=== PATIENT | female | born 1960 | race Hispanic/Latino ===

== ENCOUNTER 2020-02-12 09:39 | Emergency (ER) | payer MEDICARE, MEDICAID ==
[2020-02-12] MEDS ORDERED: levETIRAcetam 500 MG/100 ML PREMIX BAG ONE (10:02)
[2020-02-12 10:40] LABS: #Monocytes 0.5 thou/uL (0.11-0.59); #Neutrophils 11.7 thou/uL (1.40-6.50); %Basophils 0.2 % (0.0-1.0); %Eosinophils 0.3 % (0.0-10.0); %Lymphocytes 7.2 % (21.0-51.0); %Monocytes 3.9 % (0.0-10.0); %Neutrophils 88.3 % (42.0-75.0); Hemoglobin 13.2 g/dL (12.0-16.0); Mean Corpuscular HGB CONC 32.4 g/dL (32.0-36.0); Mean Corpuscular Hemoglobin 30.5 pg (27.0-31.0); Mean Corpuscular Volume 94.4 fL (78.0-98.0); Mean Platelet Volume 6.8 fL (7.4-10.4); Platelet Count 217 thou/uL (130-400); RBC Distribution Width 12.1 % (11.5-14.5); Red Blood Cell (RBC) Count 4.34 mill/uL (4.20-5.40); White Blood Cell (WBC) Count 13.3 thou/uL (4.8-10.8)
--- NOTE | 2020-02-12 11:03 | CT ---
EXAM: CT brain without contrast HISTORY: Seizure COMPARISON: 01/28/2020 TECHNIQUE: Multiple contiguous axial images were obtained and a CT of the brain without contrast. FINDINGS: The brain is normal in morphology and attenuation without focal lesions or confluent areas of infarction. There is no evidence of hydrocephalus, intracranial hemorrhage, or extra-axial fluid collection. The calvarium and overlying soft tissues are unremarkable. The visualized paranasal sinuses and masto id air cells are well aerated. IMPRESSION: No evidence of acute intracranial abnormality
[2020-02-12 11:04] LABS: ALT (SGPT) 13 U/L (8-55); AST (SGOT) 13 U/L (5-34); Albumin 4.1 g/dL (3.5-5.0); Alkaline Phosphatase 78 U/L (40-110); Anion Gap 17 mmol/L (10-20); BUN (Urea Nitrogen) 11 mg/dL (9.8-20.1); Bilirubin, Total 0.2 mg/dL (0.2-1.2); Calc. Creatinine Clearance 0 mL/min (70-130); Calcium 9.6 mg/dL (7.8-10.44); Carbon Dioxide 24 mmol/L (22-29); Chloride 104 mmol/L (98-107); Estimated GFR-MDRD 72; Globulin 3.2 g/dL (2.4-3.5); Glucose 133 mg/dL (70-105); Potassium 3.8 mmol/L (3.5-5.1); Protein, Total 7.3 g/dL (6.0-8.3); Sodium 141 mmol/L (136-145)
--- NOTE | 2020-02-12 11:14 | CT ---
CT CERVICAL SPINE WITH CORONAL AND SAGITTAL REFORMATIONS: Date: 02/12/2020 HISTORY: Seizure. Fall. Neck pain. FINDINGS: Comparison made with exam of 08/27/2019. Degenerative changes at C5-6 and T1-T2 levels are again seen. No fracture, subluxation, or bony destr uction is seen. No facet malalignment is identified. No prevertebral soft tissue swelling is seen. Th e visualized lung zurita are clear. IMPRESSION: No CT evidence of acute cervical spine fracture or traumatic subluxation. POS: OFF
[2020-02-12 11:21] LABS: Lactic Acid 3.7 mmol/L (0.5-2.2)
== END 2020-02-12 14:54 | disposition home or self-care (01) ==
LOC: ERS 09:39
DX: G40.909 Epilepsy, unspecified, not intractable, without status epilepticus (principal); E03.9 Hypothyroidism, unspecified; E11.9 Type 2 diabetes mellitus without complications; E78.5 Hyperlipidemia, unspecified; F31.9 Bipolar disorder, unspecified; F20.9 Schizophrenia, unspecified; Z79.899 Other long term (current) drug therapy; Z79.84 Long term (current) use of oral hypoglycemic drugs
CPT/HCPCS: 36415; 70450; 72125; 80053; 83605; 84146; 85025; 93005; 96361; 96374; J1953

== ENCOUNTER 2020-02-14 14:23 | Emergency (ER) | payer MEDICARE, OTHER ==
[2020-02-14 15:11] LABS: #Lymphocytes 1.2 thou/uL (1.20-3.40); #Monocytes 0.5 thou/uL (0.11-0.59); %Basophils 0.2 % (0.0-1.0); %Eosinophils 0.2 % (0.0-10.0); %Monocytes 4.2 % (0.0-10.0); %Neutrophils 85.5 % (42.0-75.0); Hemoglobin 12.6 g/dL (12.0-16.0); Mean Corpuscular HGB CONC 32.9 g/dL (32.0-36.0); Mean Corpuscular Hemoglobin 30.7 pg (27.0-31.0); Mean Corpuscular Volume 93.3 fL (78.0-98.0); Mean Platelet Volume 7.1 fL (7.4-10.4); Platelet Count 208 thou/uL (130-400); RBC Distribution Width 12.1 % (11.5-14.5); Red Blood Cell (RBC) Count 4.11 mill/uL (4.20-5.40); White Blood Cell (WBC) Count 11.7 thou/uL (4.8-10.8)
[2020-02-14 15:30] LABS: Anion Gap 17 mmol/L (10-20); BUN (Urea Nitrogen) 9 mg/dL (9.8-20.1); Calc. Creatinine Clearance 0 mL/min (70-130); Calcium 9.6 mg/dL (7.8-10.44); Carbon Dioxide 24 mmol/L (22-29); Chloride 105 mmol/L (98-107); Estimated GFR-MDRD 77; Glucose 86 mg/dL (70-105); Potassium 3.6 mmol/L (3.5-5.1); Sodium 142 mmol/L (136-145)
[2020-02-14 16:58] LABS: Bacteria/HPF 3+ HPF (None Seen); Bilirubin Negative (Negative); Blood, Urine Negative (Negative); Clarity Clear (Clear); Glucose, Urine (Dipstick) Normal (Negative); Ketone, Urine 40 mg/dL (Negative); Leukocyte 250 Leu/uL (Negative); Mucous/LPF Rare LPF (<2+); Nitrite Negative (Negative); Protein, Urine (Dipstick) 20 mg/dL (Neg-Trace); RBC/HPF 0-3 HPF (0-3); Specific Gravity, Urine 1.023 (1.002-1.036); Urobilinogen Normal mg/dL (Less than 2)
== END 2020-02-14 17:45 | disposition home or self-care (01) ==
LOC: ERS 14:23
DX: R53.1 Weakness (principal); E11.9 Type 2 diabetes mellitus without complications; E03.9 Hypothyroidism, unspecified; E78.5 Hyperlipidemia, unspecified; F31.9 Bipolar disorder, unspecified; F25.9 Schizoaffective disorder, unspecified; Z79.84 Long term (current) use of oral hypoglycemic drugs; Z79.899 Other long term (current) drug therapy
CPT/HCPCS: 36415; 80048; 81003; 81015; 85025; 87086

== ENCOUNTER 2020-02-16 09:27 | Inpatient (IN) | payer MEDICARE, MEDICAID, OTHER ==
[2020-02-16 09:52] LABS: #Lymphocytes 1.3 thou/uL (1.20-3.40); #Monocytes 1.1 thou/uL (0.11-0.59); #Neutrophils 13.8 thou/uL (1.40-6.50); %Basophils 0.1 % (0.0-1.0); %Eosinophils 0.1 % (0.0-10.0); %Lymphocytes 8.1 % (21.0-51.0); %Monocytes 6.6 % (0.0-10.0); Hemoglobin 14.2 g/dL (12.0-16.0); Mean Corpuscular Hemoglobin 29.6 pg (27.0-31.0); Mean Corpuscular Volume 92.7 fL (78.0-98.0); Mean Platelet Volume 7.1 fL (7.4-10.4); Platelet Count 234 thou/uL (130-400); RBC Distribution Width 12.5 % (11.5-14.5); Red Blood Cell (RBC) Count 4.79 mill/uL (4.20-5.40); White Blood Cell (WBC) Count 16.2 thou/uL (4.8-10.8)
[2020-02-16 09:59] LABS: INR-International Normal Ratio 1.1; PTT 27.1 sec (22.9-36.1); Prothrombin Time 13.9 sec (12.0-14.7)
[2020-02-16 10:12] LABS: ALT (SGPT) 64 U/L (8-55); AST (SGOT) 221 U/L (5-34); Albumin 4.3 g/dL (3.5-5.0); Alkaline Phosphatase 83 U/L (40-110); Anion Gap 19 mmol/L (10-20); BUN (Urea Nitrogen) 9 mg/dL (9.8-20.1); Bilirubin, Total 0.6 mg/dL (0.2-1.2); Calc. Creatinine Clearance 0 mL/min (70-130); Calcium 10.7 mg/dL (7.8-10.44); Carbon Dioxide 24 mmol/L (22-29); Chloride 102 mmol/L (98-107); Estimated GFR-MDRD 54; Globulin 3.5 g/dL (2.4-3.5); Glucose 169 mg/dL (70-105); Potassium 3.2 mmol/L (3.5-5.1); Protein, Total 7.8 g/dL (6.0-8.3); Sodium 142 mmol/L (136-145)
--- NOTE | 2020-02-16 10:14 | RAD ---
XR Chest 1 View Portable HISTORY: Fall, chest pain COMPARISON: 01/28/2020 FINDINGS: The heart size is normal. The lungs are well expanded without focal areas of consolidation, pneumothorax or pleural effusions. IMPRESSION: No radiographic evidence of acute cardiopulmonary process.
--- NOTE | 2020-02-16 10:17 | RAD ---
XR Pelvis AP STANDARD HISTORY: Fall, pelvic pain FINDINGS: No fracture or dislocation is identified.
[2020-02-16 10:39] LABS: CK (CPK) 11214 U/L (29-168)
[2020-02-16 10:41] LABS: CKMB 76.8 ng/mL (0-6.6)
[2020-02-16] MEDS ORDERED: cefTRIAXone\\ROCEPHIN 2 GM VIAL ONE (11:05)
[2020-02-16 11:27] LABS: Bilirubin Large (Negative); Blood, Urine Moderate (Negative); Glucose, Urine (Dipstick) Negative (Negative); Ketone, Urine > or equal to 80 mg/dL (Negative); Leukocyte Negative (Negative); Nitrite Negative (Negative); Protein, Urine (Dipstick) 100 mg/dL (Neg-Trace); Urobilinogen 0.2 mg/dL (Less than 2)
[2020-02-16 11:28] LABS: Clarity Hazy (Clear); Specific Gravity, Urine 1.026 (1.002-1.036)
[2020-02-16 11:36] LABS: Bacteria/HPF 1+ HPF (None Seen); Squamous Epithelial 21-50 HPF (0-3)
[2020-02-16] MEDS ORDERED: Ondansetron ODT 4 MG TAB PO PRN (11:46)
[2020-02-16] MEDS ORDERED: Bisacodyl 5 MG TAB PO PRN (11:46)
[2020-02-16] MEDS ORDERED: Acetaminophen 325 MG TAB PO PRN (11:46)
[2020-02-16] MEDS ORDERED: Lactated Ringer's 1,000 ML IV SCH ×2 (12:00→18:30)
[2020-02-16 12:55] VITALS: BMI 30.2
[2020-02-16 13:23] LABS: Lactic Acid 1.8 mmol/L (0.5-2.2)
[2020-02-16 13:28] LABS: HBCM Index 0.07 S/CO (0-0.79); HBSAg Index 0.22 S/CO (0-0.99); HIV (1/2) Antibody/Antigen Non-Reactive (NonReactive); Hep A IgM AB Non-Reactive (NonReactive); Hep A IgM S/CO 0.53 S/CO (0-0.79); Hep B Surf Ag Non-Reactive S/CO (NonReactive); Hep C IgG Ab Non-Reactive (NonReactive); Hep C Index 0.08 S/CO (0-0.79); Hepatitis B Core IgM Abs Non-Reactive (NonReactive)
[2020-02-16 13:33] LABS: Troponin I 0.047 ng/mL (< 0.028)
--- NOTE | 2020-02-16 13:56 | PDOC.FPRHP ---
- History of Present Illness Chief Complaint: weakness History of Present Illness: Pt is a 59yo F with a PMH of HLD, HTN, seizures, hypothyroidism, DM2, bipolar, depression, schizoaffective who presents after being found down for 2 days in her house. Patient came to the ED on 02/11 for a seizure and was in the ED on with complaints of weakness and was sent home with Abx for a UTI. Patient states she has been increasingly weak and is unsure why. She states she fell off her bed on Sunday once she got home from the ED and was unable to get up until her friend found her and brought her to the ED. She denies LOC, but did hit her head when she fell. She states full body aches and weakness, and SOB when she walks, but no other symptoms. Denies any substance use, any new seizures, CP, NGUYỄN, abdominal pain, change in bowel habits or dysuria. She has home health who comes to see her everyday M-F. ED Course: 2g Rocephin, 1L bolus LR - Allergies/Adverse Reactions Allergies Allergy/AdvReac Type Severity Reaction Status Date / Time fluoxetine [From Prozac] Allergy Verified 02/16/20 12:35 haloperidol [From Haldol] Allergy Verified 02/16/20 12:35 zolpidem [From Ambien] Allergy Verified 02/16/20 12:35 - Home Medications Medication Instructions Recorded Confirmed Type Cephalexin [Keflex] 1 cap PO TID 02/16/20 02/16/20 History Citalopram [CeleXA] 10 mg PO QPM 02/16/20 02/16/20 History Divalproex Sodium [Divalproex 500 mg PO QPM 02/16/20 02/16/20 History Sodium ER] Levothyroxine Sodium [Synthroid] 75 mcg PO DAILY 02/16/20 02/16/20 History OLANZapine 1 tab PO DAILY 02/16/20 02/16/20 History Pravastatin Sodium [Pravachol] 40 mg PO HS 02/16/20 02/16/20 History Valbenazine Tosylate [Ingrezza] 1 cap PO DAILY 02/16/20 02/16/20 History levETIRAcetam [Keppra] 1,000 mg PO BID 02/16/20 02/16/20 History metFORMIN [Glucophage] 500 mg PO BID-WM 02/16/20 02/16/20 History traZODone HCl [Trazodone HCl] 150 mg PO QPM 02/16/20 02/16/20 History - History PMHx: HLD, HTN, seizures, hypothyroidism, DM2, bipolar, schizoaffective, depression PSHx: cataract surgery FHx: mom-gallbladder ca, dad heart attack Social: denies tobacco, drugs, or alcohol use. Lives at home - Review of Systems General: reports: fatigue. denies: fever/chills, weight/appetite/sleep changes Eyes: denies: vision changes ENT: denies: nasal congestion Respiratory: reports: exercise intolerance. denies: cough Cardiovascular: denies: chest pain, palpitation, edema Gastrointestinal: denies: nausea, vomiting, constipation, abdominal pain Genitourinary: denies: dysuria Skin: denies: rashes, jaundice Musculoskeletal: denies: pain, tenderness Neurological: reports: weakness Psychological: denies: anxiety, depression - Vital signs BP: [] HR: [] RR: [] Tmax: [] Pox: []% on [] Wt: [] - Physical Exam Constitutional: NAD, awake, alert and oriented HEENT: normocephalic and atraumatic, EOMI, no scleral icterus Heart: RRR, pulses present, no edema Lungs: CTAB, no respiratory distress Abdomen: soft, non-tender, bowel sounds present Musculoskeletal: ROM grossly normal Neurological: no focal deficit, normal sensation -Neurological: 3/5 strength BUE, 2/5 strength BLE Skin: no rash/lesions, no jaundice -Heme/Lymphatic: multiple bruises on extremities from fall Psychiatric: normal mood and affect, intact recent and remote memory FMR H&P: Results - Labs Result Diagrams: 02/16/20 09:40 02/16/20 09:40 Lab results: WBC 16.2 thou/uL (4.8-10.8) H 02/16/20 09:40 Hgb 14.2 g/dL (12.0-16.0) 02/16/20 09:40 Hct 44.4 % (36.0-47.0) 02/16/20 09:40 MCV 92.7 fL (78.0-98.0) 02/16/20 09:40 Plt Count 234 thou/uL (130-400) 02/16/20 09:40 Neutrophils % 85.0 % (42.0-75.0) H 02/16/20 09:40 Sodium 142 mmol/L (136-145) 02/16/20 09:40 Potassium 3.2 mmol/L (3.5-5.1) L 02/16/20 09:40 Chloride 102 mmol/L (98-107) 02/16/20 09:40 Carbon Dioxide 24 mmol/L (22-29) 02/16/20 09:40 BUN 9 mg/dL (9.8-20.1) L 02/16/20 09:40 Creatinine 1.05 mg/dL (0.6-1.1) 02/16/20 09:40 Glucose 169 mg/dL (70-105) H 02/16/20 09:40 Lactic Acid 1.8 mmol/L (0.5-2.2) 02/16/20 12:58 Calcium 10.7 mg/dL (7.8-10.44) H 02/16/20 09:40 Total Bilirubin 0.6 mg/dL (0.2-1.2) 02/16/20 09:40 AST 221 U/L (5-34) H 02/16/20 09:40 ALT 64 U/L (8-55) H 02/16/20 09:40 Alkaline Phosphatase 83 U/L (40-110) 02/16/20 09:40 Creatine Kinase 37593 U/L (29-168) H 02/16/20 09:40 CK-MB (CK-2) 76.8 ng/mL (0-6.6) H* 02/16/20 09:40 B-Natriuretic Peptide 155.5 pg/mL (0-100) H 02/16/20 09:40 Serum Total Protein 7.8 g/dL (6.0-8.3) 02/16/20 09:40 Albumin 4.3 g/dL (3.5-5.0) 02/16/20 09:40 Urine Ketones > or equal to 80 mg/dL (Negative) A 02/16/20 10:29 Urine Blood Moderate (Negative) A 02/16/20 10:29 Urine Nitrite Negative (Negative) 02/16/20 10:29 Ur Leukocyte Esterase Negative (Negative) 02/16/20 10:29 Urine RBC 4-6 HPF (0-3) A 02/16/20 10:29 Urine WBC 11-20 HPF (0-3) A 02/16/20 10:29 Ur Squamous Epith Cells 21-50 HPF (0-3) A 02/16/20 10:29 Urine Bacteria 1+ HPF (None Seen) A 02/16/20 10:29 - EKG Interpretation EKG: normal sinus rhythm FMR H&P: A/P - Plan Rhabdomyolysis -patient was found down after at least 2 days -CK >11,000, WBC 16,000 -1L LR in the ED, additional 1L on admission -150mL/hr LR mIVF -continue to monitor CK, I/Os Generalized weakness likely 2/2 deconditioning -patient has history of weakness -PT/OT on board Transaminitis -likely 2/2 rhabdo -continue to monitor with daily CMPs Elevated Troponin -likely 2/2 rhabdo -will trend HLD -continue home meds HTN -continue home meds -continue to monitor Seizures -continue home meds Hypothyroidism -continue home meds DM2 -continue home meds Bipolar -continue home meds Depression -continue home meds IVF: 150mL/hr LR DVT prophylaxis: Lovenox Diet: Heart healthy PCP: [facility] Dispo: Admit to inpatient Tele. Palliative and CM consulted for discharge planning. Plan discussed with Dr. Mcallister and attending Dr. Vences and they agree. FMR H&P: Upper Level - Plan Date/Time: 02/16/20 1356 I, Vi Mcallister MD, have evaluated this patient and agree with findings/plan as outlined by editing internship resident. Pertinent changes/additions are listed here. HPI: This is a 59yo F with PMH significant for HTN, epilepsy, HLD, DMII, and mental health disorders who presents to the ER after being found down for the last 2 days. The patient states that she fell on Sunday and was unable to get up. She endorses muscle aches and weakness. She endorses SOB that is worse with walking. She denies any chest pain. She does have services M-F but no help on the weekends. She was unable to take any of her medications over the last 2 days. She is unsure if she had a seizure 2 days ago or not. She has a tremor at baseline. Denies any post ictal period, loss of bowel, or biting tongue. Denies fever, chills. In the ER, the patient was given rocephin as her UA showed some bacteria as well as 1L NS. See editing internship note for full HPI/details. PE: patient lying down in bed, no acute distress. obese. Bruising to left eye. RRR, no murmurs. CTAB. No TTP of abdomen. Overall weak- poor effort on exam. Plan: We will admit patient to tele, obs. Her CK was 11,000 - Rhabdomyolysis. Will treat with aggressive fluids. Encourage PO hydration as well. Will trend CK - expect to decrease 40-50%/day. Will order PT/OT due to deconditioning. Will not continue to treat UTI as patient does not have any urinary symptoms. Will continue home meds for her chronic conditions. CM - consulted for discharge planning - SNF vs increased care. Palliative care consulted for goals of care. Patient with multiple co-morbidities. Case discussed with Dr. Dang
[2020-02-16] MEDS: Lactated Ringer's 1,000 ML IV SCH ×2 (14:52→21:08)
[2020-02-16 15:12] LABS: ALT (SGPT) 57 U/L (8-55); AST (SGOT) 192 U/L (5-34); Albumin 3.7 g/dL (3.5-5.0); Alkaline Phosphatase 69 U/L (40-110); Bilirubin, Direct 0.2 mg/dL (0.1-0.3); Bilirubin, Total 0.3 mg/dL (0.2-1.2); Protein, Total 6.5 g/dL (6.0-8.3)
[2020-02-16 16:19] LABS: Troponin I 0.031 ng/mL (< 0.028)
[2020-02-16] MEDS ORDERED: HumaLOG 300 UNITS/3 ML VIAL SC PRN (17:28)
[2020-02-16] MEDS ORDERED: Dextrose 5% in Water 1,000 ML IV PRN (17:28)
[2020-02-16] MEDS ORDERED: Dextrose 50% Abboject 50 ML SYRINGE SLOW IVP PRN (17:28)
[2020-02-16] MEDS ORDERED: metFORMIN 500 MG TAB PO SCH (19:30)
[2020-02-16] MEDS ORDERED: traZODone HCl 150 MG TAB PO SCH (21:00)
[2020-02-16] MEDS ORDERED: Atorvastatin Calcium 10 MG TAB PO SCH (21:00)
[2020-02-16] MEDS: levETIRAcetam 500 MG TAB PO SCH (21:09)
[2020-02-16] MEDS: Citalopram 10 MG TAB PO SCH (21:10)
[2020-02-17] MEDS: Lactated Ringer's 1,000 ML IV SCH ×4 (00:19→23:20)
[2020-02-17 04:51] LABS: #Lymphocytes 3.2 thou/uL (1.20-3.40); #Monocytes 1.1 thou/uL (0.11-0.59); #Neutrophils 6.4 thou/uL (1.40-6.50); %Basophils 0.3 % (0.0-1.0); %Eosinophils 0.3 % (0.0-10.0); %Monocytes 9.8 % (0.0-10.0); %Neutrophils 59.7 % (42.0-75.0); Mean Corpuscular HGB CONC 32.7 g/dL (32.0-36.0); Mean Corpuscular Hemoglobin 31.1 pg (27.0-31.0); Mean Corpuscular Volume 95.1 fL (78.0-98.0); Mean Platelet Volume 7.5 fL (7.4-10.4); Platelet Count 164 thou/uL (130-400); RBC Distribution Width 12.5 % (11.5-14.5); Red Blood Cell (RBC) Count 3.54 mill/uL (4.20-5.40); White Blood Cell (WBC) Count 10.8 thou/uL (4.8-10.8)
[2020-02-17 05:15] LABS: ALT (SGPT) 50 U/L (8-55); AST (SGOT) 136 U/L (5-34); Alkaline Phosphatase 57 U/L (40-110); Anion Gap 12 mmol/L (10-20); BUN (Urea Nitrogen) 7 mg/dL (9.8-20.1); Bilirubin, Total 0.3 mg/dL (0.2-1.2); CK (CPK) Greater than 4000 U/L (29-168); Calc. Creatinine Clearance 115 mL/min (70-130); Carbon Dioxide 26 mmol/L (22-29); Chloride 107 mmol/L (98-107); Estimated GFR-MDRD Greater than 90; Globulin 2.3 g/dL (2.4-3.5); Glucose 106 mg/dL (70-105); Potassium 3.4 mmol/L (3.5-5.1); Protein, Total 5.3 g/dL (6.0-8.3); Sodium 142 mmol/L (136-145)
[2020-02-17] MEDS: Levothyroxine Sodium 75 MCG TAB PO SCH (05:41)
[2020-02-17] MEDS ORDERED: Potassium Chloride 20 MEQ TAB PO SCH (06:15)
--- NOTE | 2020-02-17 06:18 | PDOC.FM ---
- Subjective Subjective: Patient states she is very sore and her muscles hurt all over. It hurts to move. Patient is interested in going to a SNF to get her strength back before going back home. - Objective MAR Reviewed: Yes Vital Signs & Weight: Vital Signs (12 hours) Temp Pulse Resp BP Pulse Ox 02/17/20 04:00 98.5 F 55 L 14 125/59 L 96 02/16/20 23:41 63 120/59 L 02/16/20 20:00 99 02/16/20 19:00 98.6 F 60 16 96/55 L 96 Weight Weight 77.564 kg I&O: 02/15/20 02/16/20 02/17/20 06:59 06:59 06:59 Intake Total 2136 Output Total 650 Balance 1486 Result Diagrams: 02/17/20 04:20 02/17/20 04:20 Phys Exam - Physical Examination Constitutional: NAD HEENT: moist MMs, sclera anicteric Neck: full ROM Respiratory: no wheezing, clear to auscultation bilateral Cardiovascular: RRR, no significant murmur Gastrointestinal: soft, non-tender Musculoskeletal: no edema, pulses present 2/5 strength in BUE and BLE. Neurological: moves all 4 limbs Psychiatric: normal affect, A&O x 3 Skin: normal turgor Dx/Plan - Plan Plan: Rhabdomyolysis -patient was found down after at least 2 days -CK >11,000, WBC 16,000 -1L LR in the ED, additional 1L on admission -150mL/hr LR mIVF -continue to monitor CK, I/Os - CK improving Generalized weakness likely 2/2 deconditioning -patient has history of weakness -PT/OT on board, CM for possible SNF placement Transaminitis -likely 2/2 rhabdo -continue to monitor with daily CMPs - improving Elevated Troponin -likely 2/2 rhabdo -.063 > .031 Hypokalemia - potassium 3.4 - replaced -continue to monitor HLD -continue home meds HTN -continue home meds -continue to monitor Seizures -continue home meds Hypothyroidism -continue home meds DM2 -continue home meds Bipolar -continue home meds Depression -continue home meds Acute cystitis, resolved - patient was treated in ED on 02/13 for UTI - patient denies symptoms - urine culture prelim neg IVF: 150mL/hr LR DVT prophylaxis: Lovenox Diet: Heart healthy PCP: [facility] Dispo: Admit to inpatient Tele. Palliative and CM consulted for discharge planning. Plan discussed with Dr. Mcallister and attending Dr. Beauchamp and they agree.
[2020-02-17] MEDS: levETIRAcetam 500 MG TAB PO SCH ×2 (08:16→20:38)
[2020-02-17] MEDS: OLANZapine 5 MG TAB PO SCH (08:16)
[2020-02-17] MEDS: metFORMIN 500 MG TAB PO SCH ×2 (08:16→17:38)
[2020-02-17] MEDS: Enoxaparin Sodium 40 MG/0.4 ML SYRINGE SC SCH (08:17)
--- NOTE | 2020-02-17 09:41 | HP ---
HISTORY OF PRESENT ILLNESS: I have examined the patient and discussed the case with Dr. Alena Sanchez. Briefly, Ms. Galarza is a 59-year-old female with a history of hyperlipidemia, hypertension, seizures, hypothyroidism, and type 2 diabetes. She was "found down" in her home for 2 days and presented to the ER. She has been complaining of weakness and was also noted to have an elevated CPK, consistent with rhabdomyolysis. She has been admitted for fluids and further workup and evaluation. She speaks quietly and softly, but is alert and awake. PHYSICAL EXAMINATION: VITAL SIGNS: Stable without a significant abnormality. EARS, NOSE, AND THROAT: No erythema or exudate. CARDIAC: Heart rhythm regular. S4 gallop. No murmur or rub noted. LUNGS: Clear without rales or wheezes. ABDOMEN: Flat and soft without guarding or rebound. MSK: No focal weaknesses. NEUROLOGIC: No focal deficits. LABORATORY DATA: Sodium 142, potassium 3.2, chloride 102, bicarb 24, BUN 9, and creatinine 1.05. Glucose is 169. She does have elevated transaminases with an AST of 221 and ALT of 64. Her initial creatine kinase was 11,214. Her troponin is slightly elevated at 0.063, dropping to 0.047. CBC: Her white count initially was 16,200, hemoglobin 14.2, hematocrit 44 with an MCV of 92. Her liver serologies all negative for hepatitis A, B, and C. ASSESSMENT: Rhabdomyolysis. COMMENT: Given that the patient is on atorvastatin, we should likely hold this medication to see if this improves, although the rhabdo is likely secondary to her numerous falls and prolonged "downstate." We also recheck a TSH as this can cause elevations of the CPK when low. We need further workup of her liver function tests as well, having no adequate explanation why she has elevated transaminases. We will also get her started with some OT/PT as much of her weakness may be secondary to poor conditioning. Job ID: [id number]
[2020-02-17 12:15] LABS: SARS-CoV-2 MS2 Positive; SARS-CoV-2 N Gene Negative; SARS-CoV-2 S Gene Negative; SARS-CoV-2 by NAA Not Detected (NotDetected); SARS-CoV-2 orf1ab Negative
--- NOTE | 2020-02-17 13:15 | PRG ---
DATE OF SERVICE: 02/17/2020 Ms. Galarza is very lethargic this morning, though arousable. She does state that she snores and has daytime somnolence. If she has not been worked up in the past, she may need a workup for sleep apnea. We will also proceed with a further workup of her elevated transaminases to include a right upper quadrant ultrasound and hepatitis studies. Also given her weakness and "aching all over," we will hold her statins in the event that this could be the cause as well as check her TSH for hypothyroidism. Job ID: [id number]
[2020-02-17] MEDS: Citalopram 10 MG TAB PO SCH (20:38)
[2020-02-17] MEDS: traZODone HCl 50 MG TAB PO SCH (20:38)
[2020-02-18 04:07] LABS: #Eosinphils 0.1 thou/uL (0.0-0.7); #Lymphocytes 2.7 thou/uL (1.20-3.40); #Monocytes 0.6 thou/uL (0.11-0.59); %Basophils 0.5 % (0.0-1.0); %Eosinophils 1.2 % (0.0-10.0); %Lymphocytes 36.9 % (21.0-51.0); %Monocytes 7.9 % (0.0-10.0); %Neutrophils 53.5 % (42.0-75.0); Hemoglobin 10.9 g/dL (12.0-16.0); Mean Corpuscular HGB CONC 30.4 g/dL (32.0-36.0); Mean Corpuscular Hemoglobin 30.2 pg (27.0-31.0); Mean Corpuscular Volume 99.2 fL (78.0-98.0); Mean Platelet Volume 7.7 fL (7.4-10.4); Platelet Count 148 thou/uL (130-400); RBC Distribution Width 12.5 % (11.5-14.5); White Blood Cell (WBC) Count 7.4 thou/uL (4.8-10.8)
[2020-02-18 04:32] LABS: ALT (SGPT) 45 U/L (8-55); AST (SGOT) 103 U/L (5-34); Albumin 2.5 g/dL (3.5-5.0); Alkaline Phosphatase 58 U/L (40-110); Anion Gap 12 mmol/L (10-20); BUN (Urea Nitrogen) 5 mg/dL (9.8-20.1); Bilirubin, Total 0.2 mg/dL (0.2-1.2); CK (CPK) 2468 U/L (29-168); Calc. Creatinine Clearance 131 mL/min (70-130); Calcium 8.3 mg/dL (7.8-10.44); Carbon Dioxide 22 mmol/L (22-29); Chloride 108 mmol/L (98-107); Estimated GFR-MDRD Greater than 90; Globulin 2.7 g/dL (2.4-3.5); Glucose 86 mg/dL (70-105); Potassium 4.2 mmol/L (3.5-5.1); Protein, Total 5.2 g/dL (6.0-8.3); Sodium 138 mmol/L (136-145)
[2020-02-18] MEDS: Levothyroxine Sodium 75 MCG TAB PO SCH (05:32)
[2020-02-18] MEDS: Lactated Ringer's 1,000 ML IV SCH (05:32)
--- NOTE | 2020-02-18 06:26 | PDOC.FM ---
- Subjective Subjective: Patient resting comfortably in bed. No new complaints or concerns, just still weak. Says her muscles feel a little better today. - Objective MAR Reviewed: Yes Vital Signs & Weight: Vital Signs (12 hours) Temp Pulse Resp BP Pulse Ox 02/18/20 04:00 98.9 F 61 16 136/69 98 02/17/20 19:05 99.2 F 69 18 135/70 94 L Weight Admit Weight 77.564 kg Weight 77.564 kg I&O: 02/16/20 02/17/20 02/18/20 06:59 06:59 06:59 Intake Total 2136 4860 Output Total 650 2850 Balance 1486 2009 Result Diagrams: 02/18/20 03:36 02/18/20 03:36 Phys Exam - Physical Examination Constitutional: NAD HEENT: sclera anicteric Neck: full ROM Respiratory: no wheezing Cardiovascular: RRR, no significant murmur Gastrointestinal: soft, non-tender Musculoskeletal: no edema, pulses present 2/5 strength in BUE and BLE. improvement from yesterday Neurological: moves all 4 limbs Psychiatric: normal affect, A&O x 3 Skin: no rash, normal turgor Dx/Plan - Plan Plan: Plan: Rhabdomyolysis -patient was found down after at least 2 days -CK >11,000, WBC 16,000 -1L LR in the ED, additional 1L on admission -continue to monitor CK, I/Os - CK improving to 2468 today, d/c fluids and encourage PO intake Generalized weakness likely 2/2 deconditioning -patient has history of weakness -PT/OT on board, CM for possible SNF placement Cholelithiasis with possible early cholecystitis -RUQ U/S: "cholelithiasis with subtle gallbladder wall thickening and positive sonographic Barrientos's sign concerning for early cholecystitis given the realitive lack of gallbladder distension" -denied abdominal pain. -follow up with HIDA scan Transaminitis -likely 2/2 rhabdo -continue to monitor with daily CMPs - improving -Hepatitis panel, HIV neg Elevated Troponin -likely 2/2 rhabdo -.063 > .031 Hypokalemia, resolved -continue to monitor HLD -continue home meds HTN -continue home meds -continue to monitor Seizures -continue home meds Hypothyroidism -continue home meds DM2 -continue home meds Bipolar -continue home meds Depression -continue home meds Acute cystitis, resolved - patient was treated in ED on 02/13 for UTI - patient denies symptoms - urine culture prelim neg IVF: 150mL/hr LR DVT prophylaxis: Lovenox Diet: Heart healthy PCP: [facility] Dispo: Admit to inpatient Tele. Palliative and CM consulted for discharge planning. Plan discussed with Dr. Mcallister and attending Dr. Beauchamp and they agree.
--- NOTE | 2020-02-18 07:36 | ULT ---
US Gallbladder RUQ History: Elevated AST/a.l. T Comparison: None. Findings: Real-time grayscale and color evaluation right upper quadrant of the abdomen was performed. There is portion of the aorta IVC and pancreas are unremarkable. Mild increased hepatic echotexture. Portal venous patent with antegrade flow and normal phasicity. Liver measures 17.6 cm in length. Common bile duct is normal measuring less than 4 mm. Extensive cholelithiasis. Gallbladder wall thickness upper limits of normal. Sonographic Barrientos sign is positive. Right kidney measures 10 x 4.2 x 3.9 cm without mass, hydronephrosis or normal calcifications. Impression: 1. Cholelithiasis with subtle gallbladder wall thickening and positive sonographic Barrientos's sign conc erning for early cholecystitis given the relative lack of gallbladder distention. 2. Mild hepatic steatosis.
[2020-02-18] MEDS: metFORMIN 500 MG TAB PO SCH ×2 (08:16→18:22)
[2020-02-18] MEDS: levETIRAcetam 500 MG TAB PO SCH ×2 (08:16→21:06)
[2020-02-18] MEDS: OLANZapine 5 MG TAB PO SCH (08:16)
[2020-02-18] MEDS: Enoxaparin Sodium 40 MG/0.4 ML SYRINGE SC SCH (08:17)
--- NOTE | 2020-02-18 12:32 | PDOC.FMACP ---
Advance Care Planning - Problem (1) Declining functional status Status: Acute Code(s): R53.81 - OTHER MALAISE (2) Palliative care encounter Status: Acute Code(s): Z51.5 - ENCOUNTER FOR PALLIATIVE CARE (3) Diabetes Status: Acute Code(s): E11.9 - TYPE 2 DIABETES MELLITUS WITHOUT COMPLICATIONS (4) Seizure Status: Acute Code(s): R56.9 - UNSPECIFIED CONVULSIONS (5) Cholelithiasis Status: Acute Code(s): K80.20 - CALCULUS OF GALLBLADDER W/O CHOLECYSTITIS W/O OBSTRUCTION - Note Participants: patient, family, palliative care Summary: Advanced Care Planning was discussed, allowed opportunity to decline. The diagnosis, prognosis and goals of care were discussed. Appropriate forms and documentation to accomplish the goals of care were discussed. All questions were answered. Patient elects to remain with full resuscitation measures. She has also stated that she would like her brother Delgado to be her MPOA, Palliative Care to assist in completion. No Directive to physician completed. The Palliative Care Team will be continue to assist with completion of any outstanding forms as identified. Please also refer to Palliative Care notes in note section. Time Spent (mins): 20
--- NOTE | 2020-02-18 12:36 | PDOC.PALPN ---
Palliative Progress Note - Subjective Slightly lethargic, delayed in response. Poor memory recall, however able to reorient. Frustrated with weakness and difficulty in feeding herself. - Objective Vital Signs: Vital Signs - Most Recent Temp Pulse Resp BP Pulse Ox 98.2 F 59 L 16 168/80 H 98 02/18/20 11:07 02/18/20 11:07 02/18/20 11:07 02/18/20 11:07 02/18/20 11:07 - Physical Exam Constitutional: ill appearing HEENT: moist MMs, sclera anicteric Respiratory: no wheezing, unlabored breathing Cardiovascular: RRR Gastrointestinal: soft, non-tender Genitourinary: ty catheter Musculoskeletal: edema present, diffuse muscle atrophy Deviation from normal: weakenss in gripping hands, equal strength Neurology: moves all 4 limbs, no focal deficits Skin: cap refill <2 seconds Psychiatric: A&O x 3, flat affect - Assessment (1) Declining functional status Code(s): R53.81 - OTHER MALAISE Current Visit: Yes Status: Acute (2) Palliative care encounter Code(s): Z51.5 - ENCOUNTER FOR PALLIATIVE CARE Current Visit: Yes Status: Acute (3) Diabetes Code(s): E11.9 - TYPE 2 DIABETES MELLITUS WITHOUT COMPLICATIONS Current Visit : Yes Status: Acute (4) Seizure Code(s): R56.9 - UNSPECIFIED CONVULSIONS Current Visit: Yes Status: Acute (5) Cholelithiasis Code(s): K80.20 - CALCULUS OF GALLBLADDER W/O CHOLECYSTITIS W/O OBSTRUCTION Current Visit: Yes Status: Acute - Plan Plan: GOC: Wishes she could return to home setting, but understanding that she needs care at a facility. States her main goal is "To get better and stronger". Emotional Support and Therapeutic listening. Patient verbal but slow to convey thoughts and requires ques. Patient to transition to [facility] skilled setting. Continue with full treatments and aggressive measures. Palliative Care will attempt to complete MPOA with patient prior to discharge. [25] minutes spent on this encounter with >50% of the time in counseling and coordination of care. - ROS Constitutional: weakness ENT: other (denies difficulity swallowing, throat irritation) Cardiology: other (denies chest palpitations, chest pain) Gastrointestinal: constipation Musculoskeletal: limited mobility Neurological: weakness
--- NOTE | 2020-02-18 15:03 | PRG ---
DATE OF SERVICE: 02/18/2020 Ms. Galarza is still slightly lethargic, but she will answer questions appropriately. We had obtained a gallbladder ultrasound, given her history of elevated liver enzymes. She does have extensive cholelithiasis. Her gallbladder wall thickness is at the upper limits of normal. She had a positive sonographic Barrientos sign concerning for early cholecystitis as well as mild hepatic steatosis. On careful questioning and examination of the patient, she denies any abdominal pain. She does not seem particularly tender in the right upper quadrant on my exam, but we will go ahead and proceed with a HIDA scan. She is a difficult historian and it is hard to whether or not she has had symptoms in the past. Job ID: [id number]
[2020-02-18] MEDS ORDERED: Morphine 2 MG/ML VIAL SLOW IVP SCH (17:00)
--- NOTE | 2020-02-18 18:49 | NM ---
Exam: Nuclear medicine HIDA scan HISTORY: Cholecystitis COMPARISON: None TECHNIQUE: Patient was given 4.6 millicuries of technetium 99m mebrofenin intravenously. Images were obtained for 60 minutes. After 60 minutes, the patient was given additional 2 mCi of mebrofenin and 2 mg of morphine intravenously. Additional imaging was performed for 31 minutes FINDINGS: Initial 60 minute images demonstrate uptake of the radiotracer by the hepatic parenchyma. L ocalization of radiotracer into the intrahepatic and extrahepatic biliary system. Passage of radiotracer from the common bile duct into multiple small bowel loops. No radiotracer localization af ter 60 minutes. Morphine was given. Additional imaging was performed for 30 minutes. No evidence of radiotracer localization. IMPRESSION: Absence of radiotracer localization in the gallbladder. Scintigraphic evidence of cholecy stitis Transcribed Date/Time: 02/18/2020 7:17 PM
[2020-02-18] MEDS: Citalopram 10 MG TAB PO SCH (21:06)
[2020-02-18] MEDS: traZODone HCl 50 MG TAB PO SCH (21:06)
[2020-02-19 04:08] LABS: #Eosinphils 0.2 thou/uL (0.0-0.7); #Monocytes 0.5 thou/uL (0.11-0.59); #Neutrophils 4.5 thou/uL (1.40-6.50); %Basophils 0.5 % (0.0-1.0); %Eosinophils 2.2 % (0.0-10.0); %Lymphocytes 28.1 % (21.0-51.0); %Monocytes 6.6 % (0.0-10.0); %Neutrophils 62.5 % (42.0-75.0); Hemoglobin 11.2 g/dL (12.0-16.0); Mean Corpuscular HGB CONC 32.6 g/dL (32.0-36.0); Mean Corpuscular Hemoglobin 30.8 pg (27.0-31.0); Mean Corpuscular Volume 94.5 fL (78.0-98.0); Mean Platelet Volume 7.5 fL (7.4-10.4); Platelet Count 173 thou/uL (130-400); RBC Distribution Width 12.2 % (11.5-14.5); Red Blood Cell (RBC) Count 3.62 mill/uL (4.20-5.40); White Blood Cell (WBC) Count 7.2 thou/uL (4.8-10.8)
[2020-02-19 04:28] LABS: ALT (SGPT) 39 U/L (8-55); AST (SGOT) 59 U/L (5-34); Albumin 2.9 g/dL (3.5-5.0); Alkaline Phosphatase 58 U/L (40-110); Anion Gap 12 mmol/L (10-20); BUN (Urea Nitrogen) 6 mg/dL (9.8-20.1); Bilirubin, Total 0.2 mg/dL (0.2-1.2); Calc. Creatinine Clearance 121 mL/min (70-130); Calcium 8.9 mg/dL (7.8-10.44); Carbon Dioxide 30 mmol/L (22-29); Chloride 103 mmol/L (98-107); Estimated GFR-MDRD Greater than 90; Globulin 2.6 g/dL (2.4-3.5); Glucose 90 mg/dL (70-105); Potassium 3.8 mmol/L (3.5-5.1); Protein, Total 5.5 g/dL (6.0-8.3); Sodium 141 mmol/L (136-145)
[2020-02-19] MEDS: Levothyroxine Sodium 75 MCG TAB PO SCH (05:13)
--- NOTE | 2020-02-19 06:33 | PDOC.FM ---
- Subjective Subjective: Patient doing well this morning. Increased ROM and strength, although still weak. Ready to go to SNF. Denies abdominal pain, N/V, CP, SOB. - Objective MAR Reviewed: Yes Vital Signs & Weight: Vital Signs (12 hours) Temp Pulse Resp BP Pulse Ox 02/19/20 04:00 98.5 F 58 L 14 149/67 H 95 02/18/20 20:00 98 02/18/20 19:50 98.6 F 61 18 174/79 H 95 Weight Admit Weight 77.564 kg Weight 77.564 kg I&O: 02/17/20 02/18/20 02/19/20 06:59 06:59 06:59 Intake Total 2136 4860 1080 Output Total 650 2850 2900 Balance 1486 2009 Result Diagrams: 02/19/20 03:35 02/19/20 03:35 Phys Exam - Physical Examination Constitutional: NAD HEENT: sclera anicteric Neck: supple, full ROM Respiratory: no wheezing, clear to auscultation bilateral Cardiovascular: RRR, no significant murmur Gastrointestinal: soft, non-tender, no distention, positive bowel sounds Musculoskeletal: pulses present Neurological: moves all 4 limbs 3/5 strength BUE, 2/5 strength BLE Psychiatric: A&O x 3 Skin: no rash, normal turgor Dx/Plan - Plan Plan: Rhabdomyolysis -patient was found down after at least 2 days -CK >11,000, WBC 16,000 -1L LR in the ED, additional 1L on admission - CK improved, d/c IVF yesterday 02/17 - encourage PO intake Generalized weakness likely 2/2 deconditioning -patient has history of weakness -PT/OT on board -SNF placement upon discharge Cholelithiasis with possible early cholecystitis -RUQ U/S: "cholelithiasis with subtle gallbladder wall thickening and positive sonographic Barrientos's sign concerning for early cholecystitis given the realitive lack of gallbladder distension" -denied abdominal pain. -HIDA scan positive for cholecystitis. Patient denies abdominal pain. Feel like she is too weak to undergo surgery at this time. Will have patient follow up with PCP to get referral to surgery to see if surgery is warranted after rehab at SNF. Transaminitis, improving -likely 2/2 rhabdo -continue to monitor with daily CMPs - improving -Hepatitis panel, HIV neg Elevated Troponin -likely 2/2 rhabdo -.063 > .031 Hypokalemia, resolved -continue to monitor HLD -continue home meds HTN -continue home meds -continue to monitor Seizures -continue home meds Hypothyroidism -continue home meds DM2 -continue home meds Bipolar -continue home meds Depression -continue home meds Acute cystitis, resolved - patient was treated in ED on 02/13 for UTI - patient denies symptoms - urine culture prelim neg IVF: KVO DVT prophylaxis: Lovenox Diet: Heart healthy PCP: [place] Dispo: Admit to inpatient Tele. Palliative and CM consulted for discharge planning. Plan discussed with Dr. Mcallister and attending Dr. Beauchamp and they agree.
[2020-02-19] MEDS: Enoxaparin Sodium 40 MG/0.4 ML SYRINGE SC SCH (09:24)
[2020-02-19] MEDS: metFORMIN 500 MG TAB PO SCH (09:24)
[2020-02-19] MEDS: OLANZapine 5 MG TAB PO SCH (09:24)
[2020-02-19] MEDS: levETIRAcetam 500 MG TAB PO SCH (09:24)
--- NOTE | 2020-02-19 12:36 | PRG ---
DATE OF SERVICE: 02/19/2020 Ms. Galarza is much more alert and talkative this morning. She continues to deny any right upper quadrant abdominal pain or any history of such pain. Her HIDA scan was consistent with cholecystitis. When I examined her again this morning, she did have some slight right upper quadrant tenderness to deep palpation, but she had none yesterday with the same exam. Her history is thus a bit confusing. In the event, she still needs to recover somewhat from her generalized weakness before even considering surgery. She will therefore be discharged to a rehab unit for OT and PT. She will be encouraged to follow up with her PCP and a general surgeon to re-evaluate her gallbladder at a such time when her strength has returned. Job ID: [id number]
[2020-02-19 15:28] VITALS: BP 138/66; TEMP 98.6
[2020-02-19 15:50] LABS: ANA Symphony (Qualitative) Negative (Negative); ANA Symphony (Quantitative) 0.2 Ratio (< 0.7 Negative); dsDNA IgG Antibody Less than 0.5 IU/mL (<10 Negative)
--- NOTE | 2020-02-20 08:11 | PQF ---
Dear : Mando Beauchamp Date : 02/20/20 Please exercise your independent, professional judgment in responding to the clarification form. Clinical indicators are provided on the bottom of this form for your review Can you please further clarify the specificity of Rhabdomyolysis? Please check appropriate box(es): [ ] Traumatic Rhabdomyolysis [ ] Non Traumatic Rhabdomyolysis [ ] Other diagnosis please specify [X ] Unable to determine Physician Signature: Date/Time: For continuity of documentation, please document condition throughout progress notes and discharge summary. Thank You. To be completed by CDI/Coding staff for physician review: Present Clinical Indicators - Signs / Symptoms / Labs Results and Location in Medical Record [ x ] Rhabdomyolysis- patient found down after at least 2 days H and P pg.4 [ x ] CK > 11,000, WBC 16,000 H and P pg.4 [ x ] Transaminitis likely 2/2 rhabdo H and P pg.4 [ x ] Rhabdo is likely secondary to her numerous fall and prolong [place] H and P pg.1 [ x ] Patient states she is very sore and her muscle hurt all over Family Med PN pg.1 Present Risk Factors Results and Location in Medical Record [ x ] HTN H and P pg.5 [ x ] Epilepsy H and P pg.5 [ x ] HLD H and P pg.5 [ x ] Mental health disoder H and P pg.5 [ x ] 59 years old H and P pg.5 [ x ] DM H and P pg.5 Present Treatments Results and Location in Medical Record [ x ] IV Fluids MAR [ x ] CK Monitoring Laboratory [ x ] Abdominal Ultrasound 02/17 [ x ] Morphine 2gn IV slow MAR CDS/Facs Teacher Signature: Sae Cramer Phone #: [phone] Date: 02/20/20 This is a permanent part of the Medical Record [facility]
--- NOTE | 2020-02-21 10:50 | DIS ---
DATE OF ADMISSION: 02/16/2020 DATE OF DISCHARGE: 02/19/2020 PRIMARY CARE PHYSICIAN: Desean Valentine MD RESIDENT: Alena Sanchez, PGY-1. ADMITTING ATTENDING: Mando Dang MD DISCHARGE ATTENDING: Mando Dang MD CONSULT: 1. PT and OT. 2. Palliative Care. 3. Case management. PROCEDURES: Include chest x-ray in the ED which showed no radiographic evidence of acute pulmonary processes. Pelvis x-ray in the ED showed no fractures or dislocations identified. Abdomen ultrasound specifically of the right upper quadrant showed cholelithiasis with subtle gallbladder wall thickening and positive sonographic Barrientos sign concerning for early cholecystitis given the relative lack of gallbladder distention and mild hepatic steatosis. HIDA scan showed absence of radiotracer localization in the gallbladder with evidence of cholecystitis. PRIMARY DIAGNOSIS: Rhabdomyolysis. SECONDARY DIAGNOSES: 1. Generalized weakness, likely secondary to deconditioning. 2. Transaminitis. 3. Elevated troponin. 4. Hyperlipidemia. 5. Hypertension. 6. Seizures. 7. Hypothyroidism. 8. Type 2 diabetes. 9. Bipolar disease. 10. Depression. DISCHARGE MEDICATIONS: 1. Metformin 500 mg p.o. b.i.d. with meals. 2. Synthroid 75 mcg p.o. daily. 3. Ingrezza one capsule p.o. daily. 4. Divalproex sodium ER 500 mg p.o. at bedtime. 5. Trazodone 150 mg p.o. at bedtime. 6. Keppra 1000 mg p.o. b.i.d. 7. Pravastatin 40 mg p.o. at bedtime. 8. Olanzapine one tablet p.o. daily. 9. Citalopram 10 mg p.o. q.a.m. DISCONTINUED MEDICATIONS: Keflex 1 capsule p.o. t.i.d. HISTORY OF PRESENT ILLNESS/HOSPITAL COURSE: The patient is a 59-year-old female who presented to the ED after being found down for 2 days in her house. The patient previously came to the ED on 02/11 for seizure and was also in the ED on 02/13 with complaints of weakness and sent home with antibiotics for UTI. The patient states she has been increasingly weak and does not know why. Denies any recent trauma, injuries, or illnesses. She states she fell off her bed on Sunday when she got home from the ED on 02/13, was unable to get up until a friend found her and brought her to the ED. She did not have loss of consciousness. Did hit her head when she fell. She endorsed full body aches and weakness, shortness of breath when she walks and no other symptoms. She denies any substance use. No seizures, chest pain, headache, abdominal pain, change in bowel habits, or dysuria. She does have Home Health to come to see her every day Sunday through Sunday and during the patient's hospital stay, vitals remain stable. However, she complained of persistent weakness and full body muscle aches that did improve by the end of her hospitalization. She worked with PT and OT with noted improvement over the course of her stay with most improvement being on day of discharge as per OT's note. The patient had elevated liver enzymes with followup with right upper quadrant ultrasound and subsequent HIDA scan, which showed cholecystitis. The patient continued to deny pain, so decision was made that the patient was too weak to undergo surgery at this time, especially in the absence of pain, we did not feel that it was warranted to consult surgery on hospitalization. Plan to discharge to SNF to work on stability and strength and then follow up outpatient to see what the best next course of action is to treat her cholecystitis. During her hospital stay, she was on fluids with adequate urine output and and transaminase or liver enzymes continued to trend down. DISPOSITION: Stable. DISCHARGE INSTRUCTIONS: 1. Location: [facility]. 2. Diet: Diabetic diet, heart healthy diet. 3. Activity: The patient is supervision with activity. She is a high fall risk and is very weak. 4. Followup: With Dr. Valentine, PCP with subsequent referral to surgery to determine treatment for cholecystitis. Job ID: [id number]
== END 2020-02-19 16:09 | DRG 558 ==
LOC: ERS 09:27 → 2NO 12:40
PROVIDERS: ADMIT Family Medicine; ATTEND Family Medicine
DX: M62.82 Rhabdomyolysis (principal); N30.00 Acute cystitis without hematuria; K80.10 Calculus of gallbladder with chronic cholecystitis without obstruction; Z20.828 Contact with and (suspected) exposure to other viral communicable diseases; I10 Essential (primary) hypertension; G40.909 Epilepsy, unspecified, not intractable, without status epilepticus; E03.9 Hypothyroidism, unspecified; E11.9 Type 2 diabetes mellitus without complications; E78.5 Hyperlipidemia, unspecified; F31.9 Bipolar disorder, unspecified; F25.9 Schizoaffective disorder, unspecified; E87.6 Hypokalemia; K76.0 Fatty (change of) liver, not elsewhere classified; Z88.8 Allergy status to other drugs, medicaments and biological substances; Z79.84 Long term (current) use of oral hypoglycemic drugs; Z79.890 Hormone replacement therapy; Z79.899 Other long term (current) drug therapy
CPT/HCPCS: 36415; 36416; 36600; 71045; 72170; 76705; 78227; 80048; 80053; 80074; 81003; 81015; 82550; 82553; 83516; 83605; 83880; 84443; 84484; 85025; 85610; 85730; 86038; 86225; 87086; 87389; 87635; 93005; A9537; J0696; J1650; J2270; U0003

== ENCOUNTER 2020-06-03 19:26 | Emergency (ER) | payer MEDICARE, OTHER ==
[2020-06-03 20:17] LABS: #Lymphocytes 1.4 thou/uL (1.20-3.40); #Monocytes 0.3 thou/uL (0.11-0.59); #Neutrophils 2.8 thou/uL (1.40-6.50); %Basophils 0.2 % (0.0-1.0); %Eosinophils 0.2 % (0.0-10.0); %Monocytes 7.2 % (0.0-10.0); %Neutrophils 61.4 % (42.0-75.0); Hemoglobin 13.5 g/dL (12.0-16.0); Mean Corpuscular HGB CONC 32.9 g/dL (32.0-36.0); Mean Corpuscular Hemoglobin 29.4 pg (27.0-31.0); Mean Corpuscular Volume 89.6 fL (78.0-98.0); Mean Platelet Volume 6.7 fL (7.4-10.4); Platelet Count 180 thou/uL (130-400); RBC Distribution Width 11.9 % (11.5-14.5); Red Blood Cell (RBC) Count 4.57 mill/uL (4.20-5.40); White Blood Cell (WBC) Count 4.6 thou/uL (4.8-10.8)
--- NOTE | 2020-06-03 20:18 | RAD ---
Chest one view HISTORY: Seizure. Altered mental status. COMPARISON: 02/16/2020. FINDINGS: Cardiac silhouette and pulmonary vasculature are unremarkable. Mediastinum is midline with aortic calcification. No lobar consolidation or evidence of pneumothorax. Is 0.5 sq cm metallic density now projects over the lateral margin of the right hilum. It was not pre sent on the prior exam. IMPRESSION : No active disease is apparent. Metallic 0.5 sq cm over the lateral aspect of the right hilum could represent extrinsic artifact or b e within the patient. If there are pulmonary symptoms, oblique and lateral views of the chest could be used to evaluate for persistence (versus overlying artifact). CT could eventually be helpful for e xact localization (potentially a bronchus or pulmonary vessel).
--- NOTE | 2020-06-03 20:32 | CT ---
CT head noncontrast HISTORY: Seizure. COMPARISON: 02/12/2020. FINDINGS: There is no evidence of acute intracranial hemorrhage or infarct. The ventricles appear nor mal in size, shape and position. There is no mass effect or shift of midline structures. Visualized paranasal sinuses remain well aerated. IMPRESSION : No abnormalities are demonstrated.
[2020-06-03 20:35] LABS: ALT (SGPT) 14 U/L (8-55); AST (SGOT) 14 U/L (5-34); Alkaline Phosphatase 89 U/L (40-110); Anion Gap 15 mmol/L (10-20); BUN (Urea Nitrogen) 12 mg/dL (9.8-20.1); Bilirubin, Total 0.2 mg/dL (0.2-1.2); Calc. Creatinine Clearance 0 mL/min (70-130); Calcium 9.8 mg/dL (7.8-10.44); Carbon Dioxide 28 mmol/L (22-29); Chloride 103 mmol/L (98-107); Estimated GFR-MDRD 79; Globulin 3.2 g/dL (2.4-3.5); Glucose 147 mg/dL (70-105); Potassium 3.9 mmol/L (3.5-5.1); Protein, Total 7.2 g/dL (6.0-8.3); Sodium 142 mmol/L (136-145)
--- NOTE | 2020-06-12 16:33 | EKG ---
Test Reason : Blood Pressure : / mmHG Vent. Rate : 068 BPM Atrial Rate : 068 BPM P-R Int : 148 ms QRS Dur : 072 ms QT Int : 392 ms P-R-T Axes : 016 039 037 degrees QTc Int : 416 ms Normal sinus rhythm Normal ECG Confirmed by MAEVE HERRERA DO ([id number]), multimedia editor JEREMY MCCULLOUGH ([id number]) on 06/12/2020 4:33:28 PM Referred By: Confirmed By:MAEVE HERRERA DO
== END 2020-06-03 22:51 ==
LOC: ERS 19:26
DX: R56.9 Unspecified convulsions (principal); U07.1 COVID-19; I10 Essential (primary) hypertension; E11.9 Type 2 diabetes mellitus without complications; E03.9 Hypothyroidism, unspecified; E78.5 Hyperlipidemia, unspecified; F31.9 Bipolar disorder, unspecified; F41.9 Anxiety disorder, unspecified; F25.9 Schizoaffective disorder, unspecified; Z79.84 Long term (current) use of oral hypoglycemic drugs; Z79.899 Other long term (current) drug therapy
CPT/HCPCS: 36415; 70450; 71045; 80053; 80164; 80177; 84484; 85025; 93005

== ENCOUNTER 2020-07-01 18:11 | Emergency (ER) | payer MEDICARE, OTHER ==
[2020-07-01 19:05] LABS: #Lymphocytes 2.9 thou/uL (1.20-3.40); #Monocytes 0.5 thou/uL (0.11-0.59); #Neutrophils 3.8 thou/uL (1.40-6.50); %Basophils 0.6 % (0.0-1.0); %Eosinophils 0.1 % (0.0-10.0); %Lymphocytes 39.5 % (21.0-51.0); %Neutrophils 52.7 % (42.0-75.0); Hemoglobin 12.2 g/dL (12.0-16.0); Mean Corpuscular Hemoglobin 30.2 pg (27.0-31.0); Mean Corpuscular Volume 91.4 fL (78.0-98.0); Mean Platelet Volume 7.6 fL (7.4-10.4); Platelet Count 152 thou/uL (130-400); RBC Distribution Width 12.7 % (11.5-14.5); Red Blood Cell (RBC) Count 4.04 mill/uL (4.20-5.40); White Blood Cell (WBC) Count 7.3 thou/uL (4.8-10.8)
[2020-07-01 19:27] LABS: ALT (SGPT) 10 U/L (8-55); AST (SGOT) 12 U/L (5-34); Albumin 3.8 g/dL (3.5-5.0); Alcohol Less than 10 mg/dL (Less than 10); Alkaline Phosphatase 73 U/L (40-110); Anion Gap 14 mmol/L (10-20); BUN (Urea Nitrogen) 12 mg/dL (9.8-20.1); Bilirubin, Total 0.4 mg/dL (0.2-1.2); CK (CPK) 29 U/L (29-168); Calc. Creatinine Clearance 0 mL/min (70-130); Calcium 9.3 mg/dL (7.8-10.44); Carbon Dioxide 28 mmol/L (22-29); Chloride 102 mmol/L (98-107); Globulin 2.9 g/dL (2.4-3.5); Glucose 104 mg/dL (70-105); Protein, Total 6.7 g/dL (6.0-8.3); Sodium 140 mmol/L (136-145)
[2020-07-01 19:59] LABS: Bilirubin Negative (Negative); Blood, Urine Negative (Negative); Clarity Clear (Clear); Glucose, Urine (Dipstick) Normal (Negative); Ketone, Urine 10 mg/dL (Negative); Leukocyte Negative Leu/uL (Negative); Nitrite Negative (Negative); Protein, Urine (Dipstick) Negative (Neg-Trace); Specific Gravity, Urine 1.017 (1.002-1.036)
[2020-07-01 20:09] LABS: Amphetamine Not Detected (NotDetected); Barbiturates Screen Not Detected (NotDetected); Benzodiazepine Screen Not Detected (NotDetected); Cocaine Metabolite Screen Not Detected (NotDetected); Medtox Control Line Valid? VALID (VALID); Medtox Reader # READER 1; Methadone Not Detected (NotDetected); Methamphetamine Not Detected (NotDetected); Opiate Screen Not Detected (NotDetected); Oxycodone Screen Not Detected (NotDetected); Phencyclidine (PCP) Not Detected (NotDetected); THC/Cannabinoid Screen Not Detected (NotDetected); Tricyclic Screen Not Detected (NotDetected)
[2020-07-01 20:16] LABS: Acetaminophen Less than 6.0 mcg/mL (10.0-30.0); Alcohol Less than 10 mg/dL (Less than 10); Salicylate Less than 8.0 mg/dL (15.0-30.0)
--- NOTE | 2020-07-01 20:31 | CT ---
CT Brain WO Con History: Fall Comparison: CT brain June 03, 2020 Findings: No acute hemorrhage or infarct. No midline shift or mass effect. Ventricular size and extra -axial CSF spaces are normal. Calvarium is intact. Paranasal sinuses and mastoids are clear. Impression: No acute intracranial abnormality.
== END 2020-07-02 00:30 | disposition home or self-care (01) ==
LOC: ERS 18:11
DX: R45.851 Suicidal ideations (principal); E03.9 Hypothyroidism, unspecified; E11.9 Type 2 diabetes mellitus without complications; E78.5 Hyperlipidemia, unspecified; Z79.899 Other long term (current) drug therapy; I10 Essential (primary) hypertension; W18.30XA Fall on same level, unspecified, initial encounter
CPT/HCPCS: 36415; 70450; 80053; 80306; 80307; 81003; 82550; 83690; 84443; 84484; 85025; 93005; 94760

== ENCOUNTER 2020-11-20 17:46 | Emergency (ER) | payer MEDICARE, MEDICAID ==
[2020-11-20 19:07] LABS: #Lymphocytes 2.1 thou/uL (1.20-3.40); #Monocytes 0.4 thou/uL (0.11-0.59); #Neutrophils 3.9 thou/uL (1.40-6.50); %Basophils 0.7 % (0.0-1.0); %Eosinophils 0.4 % (0.0-10.0); %Lymphocytes 32.8 % (21.0-51.0); %Monocytes 5.5 % (0.0-10.0); %Neutrophils 60.7 % (42.0-75.0); Hemoglobin 13.4 g/dL (12.0-16.0); Mean Corpuscular HGB CONC 32.5 g/dL (32.0-36.0); Mean Corpuscular Hemoglobin 29.8 pg (27.0-31.0); Mean Corpuscular Volume 91.7 fL (78.0-98.0); Mean Platelet Volume 7.4 fL (7.4-10.4); Platelet Count 205 thou/uL (130-400); RBC Distribution Width 12.3 % (11.5-14.5); Red Blood Cell (RBC) Count 4.51 mill/uL (4.20-5.40); White Blood Cell (WBC) Count 6.4 thou/uL (4.8-10.8)
[2020-11-20] MEDS ORDERED: levETIRAcetam 500 MG TAB PO SCH (19:15)
[2020-11-20 19:32] LABS: Anion Gap 18 mmol/L (10-20); BUN (Urea Nitrogen) 17 mg/dL (9.8-20.1); Calc. Creatinine Clearance 0 mL/min (70-130); Calcium 10.3 mg/dL (7.8-10.44); Carbon Dioxide 24 mmol/L (22-29); Chloride 101 mmol/L (98-107); Glucose 110 mg/dL (70-105); Potassium 4.7 mmol/L (3.5-5.1); Sodium 138 mmol/L (136-145)
[2020-11-20] MEDS ORDERED: Acetaminophen 500 MG TAB ONE (19:56)
== END 2020-11-20 22:04 | disposition home or self-care (01) ==
LOC: ERS 17:46
DX: G40.909 Epilepsy, unspecified, not intractable, without status epilepticus (principal); Z79.899 Other long term (current) drug therapy; Z79.84 Long term (current) use of oral hypoglycemic drugs
CPT/HCPCS: 80048; 85025; 99284

== ENCOUNTER 2020-11-22 12:29 | Emergency (ER) | payer MEDICARE, MEDICAID ==
[2020-11-22 14:13] LABS: #Monocytes 0.6 thou/uL (0.11-0.59); %Basophils 0.7 % (0.0-1.0); %Eosinophils 0.3 % (0.0-10.0); %Lymphocytes 30.2 % (21.0-51.0); %Monocytes 8.7 % (0.0-10.0); Hemoglobin 12.3 g/dL (12.0-16.0); Mean Corpuscular HGB CONC 32.7 g/dL (32.0-36.0); Mean Corpuscular Hemoglobin 29.9 pg (27.0-31.0); Mean Corpuscular Volume 91.3 fL (78.0-98.0); Platelet Count 212 thou/uL (130-400); RBC Distribution Width 12.3 % (11.5-14.5); White Blood Cell (WBC) Count 6.6 thou/uL (4.8-10.8)
[2020-11-22 14:43] LABS: ALT (SGPT) 15 U/L (8-55); AST (SGOT) 27 U/L (5-34); Alkaline Phosphatase 94 U/L (40-110); Anion Gap 13 mmol/L (10-20); BUN (Urea Nitrogen) 13 mg/dL (9.8-20.1); Bilirubin, Total 0.5 mg/dL (0.2-1.2); Calc. Creatinine Clearance 0 mL/min (70-130); Calcium 9.9 mg/dL (7.8-10.44); Carbon Dioxide 26 mmol/L (22-29); Chloride 102 mmol/L (98-107); Globulin 3.4 g/dL (2.4-3.5); Glucose 94 mg/dL (70-105); Potassium 4.2 mmol/L (3.5-5.1); Protein, Total 7.4 g/dL (6.0-8.3); Sodium 137 mmol/L (136-145)
[2020-11-22 15:16] LABS: Bilirubin Negative (Negative); Blood, Urine Negative (Negative); Clarity Clear (Clear); Glucose, Urine (Dipstick) Normal (Negative); Ketone, Urine Negative (Negative); Leukocyte Negative Leu/uL (Negative); Nitrite Negative (Negative); Protein, Urine (Dipstick) Negative (Neg-Trace)
== END 2020-11-22 15:55 ==
LOC: ERS 12:29
DX: G40.909 Epilepsy, unspecified, not intractable, without status epilepticus (principal); Z79.899 Other long term (current) drug therapy; Z79.84 Long term (current) use of oral hypoglycemic drugs; I10 Essential (primary) hypertension; E03.9 Hypothyroidism, unspecified; E11.9 Type 2 diabetes mellitus without complications; E78.5 Hyperlipidemia, unspecified
CPT/HCPCS: 36415; 51701; 70450; 80053; 81003; 84146; 85025; 93005

== ENCOUNTER 2020-11-23 09:15 | Inpatient (IN) | payer MEDICARE, MEDICAID ==
[2020-11-23] MEDS ORDERED: Lidocaine 1% w/Epinephrine 1:100K 20 ML VIAL ONE (10:23)
[2020-11-23] MEDS ORDERED: Boostrix 0.5 ML (Tdap) VIAL ONE (10:23)
[2020-11-23 10:40] LABS: #Eosinphils 0.1 thou/uL (0.0-0.7); #Lymphocytes 1.2 thou/uL (1.20-3.40); #Monocytes 0.6 thou/uL (0.11-0.59); #Neutrophils 9.8 thou/uL (1.40-6.50); %Eosinophils 0.5 % (0.0-10.0); %Lymphocytes 10.4 % (21.0-51.0); %Monocytes 4.8 % (0.0-10.0); %Neutrophils 84.3 % (42.0-75.0); Hemoglobin 12.2 g/dL (12.0-16.0); Mean Corpuscular HGB CONC 31.5 g/dL (32.0-36.0); Mean Corpuscular Hemoglobin 28.7 pg (27.0-31.0); Mean Corpuscular Volume 91.1 fL (78.0-98.0); Mean Platelet Volume 7.4 fL (7.4-10.4); Platelet Count 223 thou/uL (130-400); RBC Distribution Width 12.2 % (11.5-14.5); Red Blood Cell (RBC) Count 4.24 mill/uL (4.20-5.40); White Blood Cell (WBC) Count 11.7 thou/uL (4.8-10.8)
[2020-11-23 11:05] LABS: ALT (SGPT) 14 U/L (8-55); AST (SGOT) 26 U/L (5-34); Albumin 4.1 g/dL (3.5-5.0); Alkaline Phosphatase 104 U/L (40-110); Anion Gap 15 mmol/L (10-20); BUN (Urea Nitrogen) 12 mg/dL (9.8-20.1); Bilirubin, Total 0.8 mg/dL (0.2-1.2); CK (CPK) 233 U/L (29-168); Calc. Creatinine Clearance 0 mL/min (70-130); Calcium 10.2 mg/dL (7.8-10.44); Carbon Dioxide 27 mmol/L (22-29); Chloride 99 mmol/L (98-107); Globulin 3.2 g/dL (2.4-3.5); Glucose 135 mg/dL (70-105); Potassium 4.2 mmol/L (3.5-5.1); Protein, Total 7.3 g/dL (6.0-8.3); Sodium 137 mmol/L (136-145)
[2020-11-23] MEDS ORDERED: Ondansetron PF 4 MG/2 ML Vial IVP PRN (13:25)
[2020-11-23] MEDS ORDERED: HYDROcodone/Acetaminophen 5/325 mg Tablet PO PRN (13:25)
[2020-11-23] MEDS ORDERED: Ondansetron ODT 4 MG TAB PO PRN (13:25)
[2020-11-23] MEDS ORDERED: HumaLOG 300 UNITS/3 ML VIAL SC PRN (14:03)
[2020-11-23] MEDS ORDERED: Dextrose 50% Abboject 50 ML SYRINGE SLOW IVP PRN (14:03)
[2020-11-23] MEDS ORDERED: Dextrose 5% in Water 1,000 ML IV PRN (14:03)
[2020-11-23] MEDS ORDERED: Lorazepam 2 MG/ML VIAL SLOW IVP PRN ×2 (14:17→14:23)
[2020-11-23] MEDS ORDERED: levETIRAcetam in NS 100 ML ONE (14:24)
[2020-11-23] MEDS ORDERED: Lorazepam 2 MG/ML VIAL ONE (14:24)
[2020-11-23 16:08] VITALS: BMI 28.0
[2020-11-23] MEDS ORDERED: levETIRAcetam in NS 1,000 MG in Premix Bag 1 BAG IVPB SCH (21:00)
[2020-11-23] MEDS: levETIRAcetam in NS 1,500 MG in Premix Bag 1 BAG IVPB SCH (21:06)
[2020-11-23] MEDS: Acetaminophen 325 MG TAB PO PRN (21:17)
[2020-11-23 21:52] LABS: SARS-CoV-2 PCR by NAA Not Detected (NotDetected)
[2020-11-23 22:02] LABS: Bacteria/HPF 4+ HPF (None Seen); Bilirubin Negative (Negative); Blood, Urine Negative (Negative); Clarity Turbid (Clear); Glucose, Urine (Dipstick) Normal (Negative); Ketone, Urine Negative (Negative); Leukocyte 500 Leu/uL (Negative); Nitrite Negative (Negative); Protein, Urine (Dipstick) Negative (Neg-Trace); RBC/HPF 0-3 HPF (0-3); Specific Gravity, Urine 1.008 (1.002-1.036); Squamous Epithelial 21-50 HPF (0-3); Urobilinogen 3 mg/dL (Less than 2); WBC/HPF 21-50 HPF (0-3)
[2020-11-23 22:03] LABS: Urine Culture Reflex No No
[2020-11-24 04:48] LABS: #Basophils 0.1 thou/uL (0.0-0.2); #Lymphocytes 2.1 thou/uL (1.20-3.40); #Monocytes 0.5 thou/uL (0.11-0.59); #Neutrophils 3.9 thou/uL (1.40-6.50); %Basophils 0.8 % (0.0-1.0); %Eosinophils 0.4 % (0.0-10.0); %Lymphocytes 32.1 % (21.0-51.0); %Monocytes 7.5 % (0.0-10.0); Hemoglobin 11.3 g/dL (12.0-16.0); Mean Corpuscular Hemoglobin 28.4 pg (27.0-31.0); Mean Corpuscular Volume 91.5 fL (78.0-98.0); Mean Platelet Volume 7.6 fL (7.4-10.4); Platelet Count 216 thou/uL (130-400); RBC Distribution Width 12.4 % (11.5-14.5); Red Blood Cell (RBC) Count 3.99 mill/uL (4.20-5.40); White Blood Cell (WBC) Count 6.5 thou/uL (4.8-10.8)
[2020-11-24 05:08] LABS: Anion Gap 14 mmol/L (10-20); BUN (Urea Nitrogen) 9 mg/dL (9.8-20.1); Calc. Creatinine Clearance 111 mL/min (70-130); Calcium 10.1 mg/dL (7.8-10.44); Carbon Dioxide 24 mmol/L (22-29); Chloride 102 mmol/L (98-107); Glucose 101 mg/dL (70-105); Potassium 3.8 mmol/L (3.5-5.1); Sodium 136 mmol/L (136-145)
[2020-11-24] MEDS: levETIRAcetam in NS 1,500 MG in Premix Bag 1 BAG IVPB SCH ×2 (08:55→20:33)
[2020-11-24] MEDS ORDERED: Enoxaparin Sodium 40 MG/0.4 ML SYRINGE SC SCH (09:00)
[2020-11-24] MEDS: Valproate Sodium 750 MG in Sodium Chloride 0.9% 100 ML IVPB SCH (09:34)
[2020-11-24] MEDS: cefTRIAXone\\ROCEPHIN 1 GM in Sodium Chloride 0.9% 100 ML IVPB SCH (10:53)
[2020-11-24] MEDS: Atorvastatin Calcium 20 MG TAB PO SCH (20:33)
[2020-11-24] MEDS: Gabapentin 100 MG CAP PO SCH (20:33)
[2020-11-24] MEDS: traZODone HCl 150 MG TAB PO SCH (20:34)
[2020-11-25] MEDS: Acetaminophen 650 MG Suppository PR PRN ×2 (02:59→08:31)
[2020-11-25] MEDS: Levothyroxine Sodium 75 MCG TAB PO SCH (05:23)
[2020-11-25] MEDS: Gabapentin 100 MG CAP PO SCH ×3 (08:32→21:27)
[2020-11-25] MEDS: levETIRAcetam in NS 1,500 MG in Premix Bag 1 BAG IVPB SCH ×2 (08:32→21:31)
[2020-11-25] MEDS: Valproate Sodium 750 MG in Sodium Chloride 0.9% 100 ML IVPB SCH (09:13)
[2020-11-25] MEDS: cefTRIAXone\\ROCEPHIN 1 GM in Sodium Chloride 0.9% 100 ML IVPB SCH (10:29)
[2020-11-25] MEDS: Sodium Chloride 0.9% 1,000 ML IV SCH (11:13)
[2020-11-25 17:25] LABS: Bacteria/HPF None Seen HPF (None Seen); Bilirubin Negative (Negative); Blood, Urine Negative (Negative); Clarity Clear (Clear); Glucose, Urine (Dipstick) Normal (Negative); Ketone, Urine 100 mg/dL (Negative); Leukocyte Negative Leu/uL (Negative); Nitrite Negative (Negative); Protein, Urine (Dipstick) 10 mg/dL (Neg-Trace); RBC/HPF 0-3 HPF (0-3); Specific Gravity, Urine 1.029 (1.002-1.036); Squamous Epithelial 0-3 HPF (0-3); Urobilinogen 3 mg/dL (Less than 2); WBC/HPF 0-3 HPF (0-3); pH, Urine 6.5 (5.0-9.0)
[2020-11-25 17:29] LABS: Urine Culture Reflex No No
[2020-11-25] MEDS: Atorvastatin Calcium 20 MG TAB PO SCH (21:26)
[2020-11-25] MEDS: traZODone HCl 150 MG TAB PO SCH (21:27)
[2020-11-26] MEDS: Levothyroxine Sodium 75 MCG TAB PO SCH (07:02)
[2020-11-26] MEDS: Gabapentin 100 MG CAP PO SCH ×3 (08:03→21:52)
[2020-11-26] MEDS: levETIRAcetam in NS 1,500 MG in Premix Bag 1 BAG IVPB SCH ×2 (08:06→21:51)
[2020-11-26] MEDS: Valproate Sodium 750 MG in Sodium Chloride 0.9% 100 ML IVPB SCH (09:11)
[2020-11-26] MEDS ORDERED: Lorazepam 2 MG/ML VIAL ONE (10:07)
[2020-11-26] MEDS ORDERED: Lorazepam 2 MG/ML VIAL SLOW IVP SCH (10:30)
[2020-11-26] MEDS ORDERED: Valproate Sodium 1,000 MG in Sodium Chloride 0.9% 100 ML IVPB SCH (10:30)
[2020-11-26] MEDS: cefTRIAXone\\ROCEPHIN 1 GM in Sodium Chloride 0.9% 100 ML IVPB SCH (11:19)
[2020-11-26] MEDS: Sodium Chloride 0.9% 1,000 ML IV SCH (11:27)
[2020-11-26] MEDS: Acetaminophen 325 MG TAB PO PRN (17:13)
[2020-11-26] MEDS ORDERED: Valproate Sodium 750 MG in Sodium Chloride 0.9% 100 ML IVPB SCH (21:00)
[2020-11-26] MEDS ORDERED: Valproate Sodium 250 mg/5 ml UD Cup PO SCH (21:15)
[2020-11-26] MEDS: Atorvastatin Calcium 20 MG TAB PO SCH (21:52)
[2020-11-27] MEDS: Levothyroxine Sodium 75 MCG TAB PO SCH (06:29)
[2020-11-27 08:42] LABS: #Lymphocytes 1.7 thou/uL (1.20-3.40); #Monocytes 0.3 thou/uL (0.11-0.59); #Neutrophils 2.9 thou/uL (1.40-6.50); %Basophils 0.3 % (0.0-1.0); %Lymphocytes 33.9 % (21.0-51.0); %Monocytes 5.7 % (0.0-10.0); %Neutrophils 59.1 % (42.0-75.0); Hemoglobin 11.8 g/dL (12.0-16.0); Mean Corpuscular HGB CONC 32.8 g/dL (32.0-36.0); Mean Corpuscular Hemoglobin 29.9 pg (27.0-31.0); Mean Corpuscular Volume 91.2 fL (78.0-98.0); Mean Platelet Volume 6.6 fL (7.4-10.4); Platelet Count 264 thou/uL (130-400); RBC Distribution Width 12.4 % (11.5-14.5); Red Blood Cell (RBC) Count 3.94 mill/uL (4.20-5.40)
[2020-11-27] MEDS: levETIRAcetam in NS 1,500 MG in Premix Bag 1 BAG IVPB SCH ×2 (08:44→21:01)
[2020-11-27] MEDS: Gabapentin 100 MG CAP PO SCH ×3 (08:49→21:00)
[2020-11-27] MEDS: Valproate Sodium 250 mg/5 ml UD Cup PO SCH ×2 (08:51→21:09)
[2020-11-27] MEDS ORDERED: Valproate Sodium 500 MG in Sodium Chloride 0.9% 100 ML IVPB SCH (09:00)
[2020-11-27 09:04] LABS: Anion Gap 14 mmol/L (10-20); BUN (Urea Nitrogen) 12 mg/dL (9.8-20.1); Calc. Creatinine Clearance 111 mL/min (70-130); Calcium 9.6 mg/dL (7.8-10.44); Carbon Dioxide 23 mmol/L (22-29); Chloride 107 mmol/L (98-107); Glucose 89 mg/dL (70-105); Potassium 3.8 mmol/L (3.5-5.1); Sodium 140 mmol/L (136-145)
[2020-11-27] MEDS: Sodium Chloride 0.9% 1,000 ML IV SCH (11:23)
[2020-11-27] MEDS: Acetaminophen 325 MG TAB PO PRN (15:40)
[2020-11-27] MEDS: Atorvastatin Calcium 20 MG TAB PO SCH (21:00)
[2020-11-28 05:11] LABS: Anion Gap 11 mmol/L (10-20); BUN (Urea Nitrogen) 10 mg/dL (9.8-20.1); Calc. Creatinine Clearance 120 mL/min (70-130); Calcium 9.5 mg/dL (7.8-10.44); Carbon Dioxide 24 mmol/L (22-29); Chloride 107 mmol/L (98-107); Glucose 89 mg/dL (70-105); Potassium 3.3 mmol/L (3.5-5.1); Sodium 139 mmol/L (136-145)
[2020-11-28] MEDS: Levothyroxine Sodium 75 MCG TAB PO SCH (05:38)
[2020-11-28] MEDS: levETIRAcetam in NS 1,500 MG in Premix Bag 1 BAG IVPB SCH (08:30)
[2020-11-28] MEDS: Gabapentin 100 MG CAP PO SCH ×3 (08:33→20:53)
[2020-11-28] MEDS: Valproate Sodium 250 mg/5 ml UD Cup PO SCH ×2 (08:35→20:54)
[2020-11-28] MEDS: Acetaminophen 325 MG TAB PO PRN (08:42)
[2020-11-28] MEDS: Sodium Chloride 0.9% 1,000 ML IV SCH (11:06)
[2020-11-28] MEDS ORDERED: VALBENAZINE TOSYLATE 80 MG PO SCH (17:30)
[2020-11-28] MEDS: Atorvastatin Calcium 20 MG TAB PO SCH (20:53)
[2020-11-28] MEDS: levETIRAcetam in NS 1,000 MG in Premix Bag 1 BAG IVPB SCH (20:54)
[2020-11-29] MEDS: Acetaminophen 325 MG TAB PO PRN (02:00)
[2020-11-29] MEDS: Levothyroxine Sodium 75 MCG TAB PO SCH (05:56)
[2020-11-29] MEDS ORDERED: VALBENAZINE TOSYLATE 80 MG PO SCH (09:00)
[2020-11-29] MEDS: Gabapentin 100 MG CAP PO SCH ×2 (09:28→15:17)
[2020-11-29] MEDS: Valproate Sodium 250 mg/5 ml UD Cup PO SCH (09:29)
[2020-11-29] MEDS: levETIRAcetam in NS 1,000 MG in Premix Bag 1 BAG IVPB SCH (09:29)
[2020-11-29] MEDS ORDERED: Bisacodyl 10 MG SUPP PR PRN (10:56)
[2020-11-29 15:54] VITALS: BP 150/84; TEMP 98.4
== END 2020-11-29 17:31 | DRG 101 ==
LOC: ERS 09:15 → 2SE 13:25
PROVIDERS: ADMIT Internal Medicine; ATTEND Internal Medicine
PROC: 0HQ0XZZ Repair Scalp Skin, External Approach (ICD-10-PCS; principal; 2020-11-23)
DX: G40.919 Epilepsy, unspecified, intractable, without status epilepticus (principal); S01.01XA Laceration without foreign body of scalp, initial encounter; W18.30XA Fall on same level, unspecified, initial encounter; E78.5 Hyperlipidemia, unspecified; I10 Essential (primary) hypertension; E03.9 Hypothyroidism, unspecified; E11.9 Type 2 diabetes mellitus without complications; F31.9 Bipolar disorder, unspecified; R13.10 Dysphagia, unspecified; Z51.5 Encounter for palliative care; E87.6 Hypokalemia; Z79.84 Long term (current) use of oral hypoglycemic drugs
CPT/HCPCS: 12002; 36415; 36416; 70450; 70551; 71045; 72125; 80048; 80053; 80164; 80177; 81001; 82550; 84484; 85025; 87635; 90471; 90715; 93005; 95712; 95819; 95957; 96365; 96375; J0696; J1953; J2060; J3490; U0003; U0005

== ENCOUNTER 2020-12-28 20:24 | Emergency (ER) | payer MEDICARE, MEDICAID | END 2020-12-28 23:51 | LOC: ERS 20:24 | DX: S00.01XA Abrasion of scalp, initial encounter (principal); I10 Essential (primary) hypertension; E03.9 Hypothyroidism, unspecified; E11.9 Type 2 diabetes mellitus without complications; E78.5 Hyperlipidemia, unspecified; Y04.0XXA Assault by unarmed brawl or fight, initial encounter | CPT/HCPCS: 70450; 72125 ==

== ENCOUNTER 2021-01-07 14:24 | Emergency (ER) | payer MEDICARE, MEDICAID ==
[2021-01-07 15:08] LABS: #Eosinphils 0.1 thou/uL (0.0-0.7); #Lymphocytes 2.6 thou/uL (1.20-3.40); #Monocytes 0.5 thou/uL (0.11-0.59); %Basophils 0.4 % (0.0-1.0); %Eosinophils 1.5 % (0.0-10.0); %Lymphocytes 41.1 % (21.0-51.0); %Monocytes 8.3 % (0.0-10.0); %Neutrophils 48.7 % (42.0-75.0); Hemoglobin 10.8 g/dL (12.0-16.0); Mean Corpuscular Hemoglobin 27.8 pg (27.0-31.0); Mean Corpuscular Volume 86.9 fL (78.0-98.0); Mean Platelet Volume 6.9 fL (7.4-10.4); Platelet Count 214 thou/uL (130-400); RBC Distribution Width 13.2 % (11.5-14.5); Red Blood Cell (RBC) Count 3.88 mill/uL (4.20-5.40); White Blood Cell (WBC) Count 6.3 thou/uL (4.8-10.8)
[2021-01-07 15:14] LABS: Bilirubin Negative (Negative); Blood, Urine Negative (Negative); Clarity Clear (Clear); Glucose, Urine (Dipstick) Normal (Negative); Ketone, Urine Negative (Negative); Leukocyte Negative Leu/uL (Negative); Nitrite Negative (Negative); Protein, Urine (Dipstick) Negative (Neg-Trace); Specific Gravity, Urine 1.015 (1.002-1.036); Urobilinogen Normal mg/dL (Less than 2)
[2021-01-07 15:24] LABS: Amphetamine Not Detected (NotDetected); Barbiturates Screen Not Detected (NotDetected); Benzodiazepine Screen Not Detected (NotDetected); Cocaine Metabolite Screen Not Detected (NotDetected); Medtox Control Line Valid? VALID (VALID); Medtox Reader # READER 4; Methadone Not Detected (NotDetected); Methamphetamine Not Detected (NotDetected); Opiate Screen Not Detected (NotDetected); Oxycodone Screen Not Detected (NotDetected); Phencyclidine (PCP) Not Detected (NotDetected); THC/Cannabinoid Screen Not Detected (NotDetected); Tricyclic Screen Not Detected (NotDetected)
[2021-01-07 15:29] LABS: Acetaminophen Less than 6.0 mcg/mL (10.0-30.0); Alcohol Less than 10 mg/dL (Less than 10); Magnesium 1.4 mg/dL (1.6-2.6); Salicylate Less than 8.0 mg/dL (15.0-30.0)
[2021-01-07 15:30] LABS: ALT (SGPT) 9 U/L (8-55); AST (SGOT) 16 U/L (5-34); Albumin 3.6 g/dL (3.5-5.0); Alkaline Phosphatase 70 U/L (40-110); Anion Gap 13 mmol/L (10-20); BUN (Urea Nitrogen) 17 mg/dL (9.8-20.1); Bilirubin, Total 0.2 mg/dL (0.2-1.2); Calc. Creatinine Clearance 0 mL/min (70-130); Calcium 9.5 mg/dL (7.8-10.44); Carbon Dioxide 29 mmol/L (22-29); Chloride 99 mmol/L (98-107); Globulin 3.5 g/dL (2.4-3.5); Glucose 144 mg/dL (70-105); Potassium 4.2 mmol/L (3.5-5.1); Protein, Total 7.1 g/dL (6.0-8.3); Sodium 137 mmol/L (136-145)
== END 2021-01-07 19:55 ==
LOC: ERS 14:24
DX: F31.9 Bipolar disorder, unspecified (principal); I10 Essential (primary) hypertension; E03.9 Hypothyroidism, unspecified; E11.9 Type 2 diabetes mellitus without complications; E78.5 Hyperlipidemia, unspecified; Z79.899 Other long term (current) drug therapy
CPT/HCPCS: 36415; 80053; 80306; 80307; 81003; 83735; 84443; 85025; 93005

== ENCOUNTER 2021-01-09 06:43 | Emergency (ER) | payer MEDICARE, OTHER | END 2021-01-09 08:38 | disposition home or self-care (01) | LOC: ERS 06:43 | DX: Z00.00 Encounter for general adult medical examination without abnormal findings (principal); I10 Essential (primary) hypertension; E03.9 Hypothyroidism, unspecified; E11.9 Type 2 diabetes mellitus without complications; E78.5 Hyperlipidemia, unspecified | CPT/HCPCS: 36416; 99285 ==

== ENCOUNTER 2022-04-01 16:29 | Emergency (ER) | payer MEDICARE, OTHER ==
[~2022-04-01 16:29] MED LIST: Iopamidol-370 76% 500 ML 1 ML ONE
[2022-04-01 17:58] LABS: #Eosinphils 0.1 thou/uL (0.0-0.7); #Lymphocytes 2.1 thou/uL (1.20-3.40); #Monocytes 0.4 thou/uL (0.11-0.59); #Neutrophils 2.8 thou/uL (1.40-6.50); %Basophils 0.5 % (0.0-1.0); %Eosinophils 1.2 % (0.0-10.0); %Monocytes 8.1 % (0.0-10.0); %Neutrophils 52.2 % (42.0-75.0); Hemoglobin 13.1 g/dL (12.0-16.0); Mean Corpuscular HGB CONC 33.2 g/dL (32.0-36.0); Mean Corpuscular Hemoglobin 31.9 pg (27.0-31.0); Mean Corpuscular Volume 96.1 fL (78.0-98.0); Mean Platelet Volume 7.3 fL (7.4-10.4); Platelet Count 144 thou/uL (130-400); RBC Distribution Width 12.4 % (11.5-14.5); Red Blood Cell (RBC) Count 4.09 mill/uL (4.20-5.40); White Blood Cell (WBC) Count 5.4 thou/uL (4.8-10.8)
[2022-04-01 18:18] LABS: ALT (SGPT) 15 U/L (8-55); AST (SGOT) 19 U/L (5-34); Albumin 3.9 g/dL (3.5-5.0); Alkaline Phosphatase 65 U/L (40-110); Anion Gap 15 mmol/L (10-20); BUN (Urea Nitrogen) 13 mg/dL (9.8-20.1); Bilirubin, Total 0.3 mg/dL (0.2-1.2); Calc. Creatinine Clearance 0 mL/min (70-130); Calcium 9.7 mg/dL (7.8-10.44); Carbon Dioxide 26 mmol/L (22-29); Chloride 104 mmol/L (98-107); Estimated GFR 87; Globulin 2.8 g/dL (2.4-3.5); Glucose 95 mg/dL (70-105); Potassium 4.2 mmol/L (3.5-5.1); Protein, Total 6.7 g/dL (6.0-8.3); Sodium 141 mmol/L (136-145)
[2022-04-01 18:19] LABS: Bilirubin Negative (Negative); Blood, Urine Negative (Negative); Clarity Clear (Clear); Glucose, Urine (Dipstick) Normal (Negative); Ketone, Urine 10 mg/dL (Negative); Leukocyte Negative Leu/uL (Negative); Nitrite Negative (Negative); Protein, Urine (Dipstick) 10 mg/dL (Neg-Trace); Specific Gravity, Urine 1.021 (1.002-1.036); Urobilinogen Normal mg/dL (Less than 2); pH, Urine 6.5 (5.0-9.0)
[2022-04-01 18:26] LABS: Amphetamine Not Detected (NotDetected); Barbiturates Screen Not Detected (NotDetected); Benzodiazepine Screen Not Detected (NotDetected); Cocaine Metabolite Screen Not Detected (NotDetected); Methadone Not Detected (NotDetected); Methamphetamine Not Detected (NotDetected); Opiate Screen Not Detected (NotDetected); Oxycodone Screen Not Detected (NotDetected); Phencyclidine (PCP) Not Detected (NotDetected); THC/Cannabinoid Screen Not Detected (NotDetected); Tricyclic Screen Not Detected (NotDetected)
[2022-04-01 19:22] LABS: Acetaminophen Less than 10.0 mcg/mL (10.0-30.0); Alcohol Less than 10 mg/dL (Less than 10); CK (CPK) 63 U/L (29-168); Magnesium 1.4 mg/dL (1.6-2.6); Salicylate Less than 8.0 mg/dL (15.0-30.0)
== END 2022-04-01 21:30 | disposition home or self-care (01) ==
LOC: ERS 16:29
DX: E83.42 Hypomagnesemia (principal); R53.1 Weakness; I10 Essential (primary) hypertension; E03.9 Hypothyroidism, unspecified; E78.5 Hyperlipidemia, unspecified
CPT/HCPCS: 70450; 71045; 74177; 80053; 80306; 80307; 81003; 82550; 83735; 84484; 85025; 87086; 93005; Q9967

== ENCOUNTER 2023-03-19 14:51 | Emergency (ER) | payer MEDICARE, MEDICAID | END 2023-03-19 17:58 | LOC: ERS 14:51 | DX: S09.90XA Unspecified injury of head, initial encounter (principal); M54.2 Cervicalgia; I10 Essential (primary) hypertension; E78.5 Hyperlipidemia, unspecified; W18.30XA Fall on same level, unspecified, initial encounter; Y92.009 Unspecified place in unspecified non-institutional (private) residence as the place of occurrence of the external cause; Z79.899 Other long term (current) drug therapy | CPT/HCPCS: 36416; 70450; 72125 ==